=== PATIENT | male | born 2000 | race Two or more races ===

== ENCOUNTER 2019-02-16 00:36 | Emergency (ER) | payer SELFPAY ==
[~2019-02-16] VITALS: Ht 185.4 cm; Wt 75.3 kg
[2019-02-16 01:11] VITALS: BP 137/89
[2019-02-16] MEDS ORDERED: LORAZEPAM 1 MG TABLET ONE (01:25)
[2019-02-16] MEDS ORDERED: LORAZEPAM 1 MG TABLET PO ONE (01:30)
== END 2019-02-16 02:02 | disposition home or self-care (01) ==
LOC: ER 00:36
DX: F41.9 Anxiety disorder, unspecified (principal); F12.10 Cannabis abuse, uncomplicated; R00.2 Palpitations